=== PATIENT | female | born 1975 | race Caucasian/White ===

== ENCOUNTER → 2017-07-12 | Outpatient (CLI) | payer OTHER ==
[~2017-07-12] MED LIST: CETI10CA8 PO; IBUP800T37 PO; OXYC-865 PO; PER PO
--- NOTE | 2017-07-13 10:30 | RADIOLOGY IMAGING REPORT ---
FACILITY: [facility] [place] PATIENT NAME: CHATO FLORES : [id number] MR: [id number] V: [id number] EXAM DATE: ORDERING PHYSICIAN: MARIBETH GREGG TECHNOLOGIST: Manju Arce PROCEDURE:BILATERAL DIGITAL SCREENING MAMMOGRAM WITH CAD ASSISTED INTERPRETATION AND 3D BREAST TOMOSYNTHESIS. COMPARISON:None. This is patient's baseline mammogram. INDICATIONS:SCREENING FINDINGS: Moderately dense fibroglandular tissue is seen throughout the breasts. There is no demonstration of malignant appearing mass, malignant appearing calcification or secondary sign of malignancy in either breast. DIAGNOSTIC CATEGORY 1--NEGATIVE. RECOMMENDATIONS: ROUTINE MAMMOGRAM AND CLINICAL EVALUATION. IMPRESSION: Bi-RADS 1: No significant abnormality is seen. Images were reviewed with R2CAD and 3D breast tomosynthesis. Dictated by: Mery Manning M.D. on 07/12/2017 at 17:03 Transcribed by: CLAYTON on 07/12/2017 at 22:15 Approved by: Mrey Manning M.D. on 07/13/2017 at 10:29 [facility]
== END ==
LOC: MAMO 01:07
PROVIDERS: ATTEND Physician Assistant
DX: Z12.31 Encounter for screening mammogram for malignant neoplasm of breast (principal)
CPT/HCPCS: 77063; 77067

== ENCOUNTER → 2018-08-26 | Outpatient (CLI) | payer OTHER ==
--- NOTE | 2018-08-30 12:52 | RADIOLOGY IMAGING REPORT ---
FACILITY: [facility] - [place] PATIENT NAME: CHATO FLORES : [id number] MR: [id number] V: [id number] EXAM DATE: [id number] ORDERING PHYSICIAN: MARIBETH GREGG TECHNOLOGIST: Manju Arce PROCEDURE:BILATERAL DIGITAL SCREENING MAMMOGRAM WITH CAD ASSISTED INTERPRETATION & 3D TOMOSYNTHESIS COMPARISON:[facility]. INDICATIONS:SCREENING FINDINGS: The breasts are heterogeneously dense. Two benign appearing masses are present in the upper outer aspect of the Left breast, unchanged. A few benign appearing calcifications are scattered bilaterally. DIAGNOSTIC CATEGORY 1--NEGATIVE. RECOMMENDATIONS: ROUTINE MAMMOGRAM AND CLINICAL EVALUATION IN 1 YR. IMPRESSION: BIRADS 1: Negative. Dictated by: Jorge A Jason M.D. on 08/26/2018 at 17:14 Transcribed by: [email or web address] on 08/29/2018 at 11:06 Approved by: Ramon Shea M.D. on 08/30/2018 at 12:51 [facility]
== END ==
LOC: MAMO 01:12
PROVIDERS: ATTEND Physician Assistant
DX: Z12.31 Encounter for screening mammogram for malignant neoplasm of breast (principal)
CPT/HCPCS: 77063; 77067